=== PATIENT | female | born 1975 | race Hispanic/Latino ===

== ENCOUNTER 2023-12-27 13:55 | Emergency (ER) | payer MEDICAID, SELFPAY ==
[2023-12-27] MEDS ORDERED: Lorazepam 0.5 MG TAB ONE (14:14)
[2023-12-27] MEDS ORDERED: LORazepam 2 MG/ML SYR.(CARPUJECT) ONE (14:21)
== END 2023-12-27 16:16 | disposition home or self-care (01) ==
LOC: ERS 13:55
DX: F43.0 Acute stress reaction (principal); F41.9 Anxiety disorder, unspecified
CPT/HCPCS: 36416; 96372; 99284; J2060